=== PATIENT | male | born 1995 | race African-American/Black ===

== ENCOUNTER 2017-05-13 06:10 | Emergency (ER) | payer SELFPAY ==
[~2017-05-13] VITALS: Ht 167.6 cm; Wt 68.0 kg
[2017-05-13 06:32] VITALS: BP 114/80
--- NOTE | 2017-05-13 06:33 | PHYS DOC ---
Adult General Chief Complaint Chief Complaint: SEXUALLY TRANSMITTED DISEASE HPI HPI Patient is a 21 year old male who presents with concerns for an STD. He states his girlfriend was diagnosed with Chlamydia/gonorrhea and he' s been having clear cloudy discharge of his penis for the last several days. Denies any pain, lesions on his penis, dysuria or other concerns. He states he' s never been diagnosed with a sexual transmitted infection before. He states he' s only been having sex with his girlfriend. He denies any abdominal pain or testicular pain. He denies any allergies and medications and is currently on no medications. Review of Systems Review of Systems Constitutional: Denies fever or chills [] Eyes: Denies change in visual acuity, redness, or eye pain [] HENT: Denies nasal congestion or sore throat [] Respiratory: Denies cough or shortness of breath [] Cardiovascular: No additional information not addressed in HPI [] GI: Denies abdominal pain, nausea, vomiting, bloody stools or diarrhea [] : Denies dysuria or hematuria [] Musculoskeletal: Denies back pain or joint pain [] Integument: Denies rash or skin lesions [] Neurologic: Denies headache, focal weakness or sensory changes [] Endocrine: Denies polyuria or polydipsia [] Allergies Allergies Allergies Coded Allergies Type Severity Reaction Last Updated Verified No Known Drug Allergies 05/13/17 No Physical Exam Physical Exam Constitutional: Well developed, well nourished, no acute distress, non-toxic appearance. [] HENT: Normocephalic, atraumatic, bilateral external ears normal, oropharynx moist, no oral exudates, nose normal. [] Eyes: PERRLA, EOMI, conjunctiva normal, no discharge. [] Neck: Normal range of motion, no tenderness, supple, no stridor. [] Cardiovascular:Heart rate regular rhythm, no murmur [] Lungs & Thorax: Bilateral breath sounds clear to auscultation [] Abdomen/genital: Bowel sounds normal, soft, no tenderness, no masses, no pulsatile masses. Normal appearing genitalia, no discharge or lesions appreciated Skin: Warm, dry, no erythema, no rash. [] Back: No tenderness, no CVA tenderness. [] Extremities: No tenderness, no cyanosis, no clubbing, ROM intact, no edema. [] Neurologic: Alert and oriented X 3, normal motor function, normal sensory function, no focal deficits noted. [] Psychologic: Affect normal, judgement normal, mood normal. [] Current Patient Data Vital Signs Vital Signs Date Time Temp Pulse Resp B/P (MAP) Pulse Ox O2 Delivery O2 Flow Rate FiO2 05/13/17 06:32 98.2 75 16 100 Room Air 98.2 EKG EKG [] Radiology/Procedures Radiology/Procedures [] Impressions: Penile discharge Course & Med Decision Making Course & Med Decision Making Pertinent Labs and Imaging studies reviewed. (See chart for details) Urine was sent for gonorrhea and chlamydia. He was given 250 mg IM Rocephin and 1 g of azithromycin. He is being discharged home. He is instructed not to have unprotected sex for the next 10 days. He is instructed to follow-up on his results. If he continues to have this discharge she needs a follow-up with his primary care physician or return back to ER. He is agreeable to the plan and being discharged in stable condition this time. Dragon Disclaimer Dragon Disclaimer This electronic medical record was generated, in whole or in part, using a voice recognition dictation system. Departure Departure Impression: Primary Impression: Penile discharge Disposition: 01 HOME, SELF-CARE Condition: STABLE Referrals: NO PCP (PCP) Patient Instructions: Sexually Transmitted Disease Additional Instructions: We treat you for a possible sexually transmitted infection. You will need to follow-up through primary care physician if your discharge continues after this treatment. You should not have unprotected sex for the next 10 days. Please use a condom for having sex. Return ER for fevers, pain, or other concerns. MELI VILLARREAL MD May 13, 2017 06:33
[2017-05-13] MEDS ORDERED: cefTRIAXone IM 250 MG VIAL IM ONE (07:00)
[2017-05-13] MEDS ORDERED: AZITHROMYCIN 250 MG TABLET. PO ONE (07:00)
== END 2017-05-13 06:58 | disposition home or self-care (01) ==
LOC: ER 06:10 → EDBD 06:10 → ER 06:58
DX: R36.9 Urethral discharge, unspecified (principal)
CPT/HCPCS: 36415; 87491; 87591; 96372; 99284; J0696; Q0144